=== PATIENT | female | born 1990 | race Caucasian/White ===

== ENCOUNTER 2021-04-27 15:18 | Emergency (ER) | payer MEDICAID ==
[~2021-04-27] VITALS: Ht 152.4 cm; Wt 50.3 kg
[2021-04-27 15:21] VITALS: BP 105/70
--- NOTE | 2021-04-27 15:28 | NUR ---
PT SENT TO LOBBY
[2021-04-27] MEDS ORDERED: LIDOCAINE MPF 1% 10 MG/ML VIAL INJ ONE (16:15)
--- NOTE | 2021-04-27 16:15 | NUR ---
30/F PRESENTS TO ED WITH C/O RIGHT EAR PAIN. PATIENT STATES THE BACK OF HER EARRING ON HER RIGHT EAR IS STUCK AND SHE IS UNABLE TO REMOVE IT FOR A WEEK NOW. STATES SHE WAS SEEN AT URGENT CARE TODAY BUT THEY WERE UNABLE TO REMOVE IT. DENIES FEVER, CHILLS OR PAIN.
[2021-04-27] MEDS ORDERED: BACTO TP (16:38)
--- NOTE | 2021-04-27 16:50 | NUR ---
Patient discharged with v/s stable. Written and verbal after care instructions given and explained. Patient alert, oriented and verbalized understanding of instructions. Ambulatory with steady gait. All questions addressed prior to discharge. ID band removed. Patient advised to follow up with PMD. Rx of Bactroban 2% Ointment given. Patient educated on indication of medication including possible reaction and side effects. Opportunity to ask questions provided and answered.
--- NOTE | 2021-04-27 16:52 | NUR ---
no nursing interventions performed
== END 2021-04-27 16:50 | disposition home or self-care (01) ==
LOC: MED 15:18
DX: T16.1XXA Foreign body in right ear, initial encounter (principal); Z79.899 Other long term (current) drug therapy; X58.XXXA Exposure to other specified factors, initial encounter; Y93.89 Activity, other specified; Y92.89 Other specified places as the place of occurrence of the external cause; Y99.8 Other external cause status
CPT/HCPCS: 99284; J2001

== ENCOUNTER 2021-12-20 14:03 | Emergency (ER) | payer MEDICAID ==
[~2021-12-20] VITALS: Ht 152.4 cm; Wt 43.5 kg
[~2021-12-20 14:03] MED LIST: BACTO TP
[2021-12-20 14:26] VITALS: BP 116/67
[2021-12-20] MEDS ORDERED: LIDOCAINE MPF 1% 10 MG/ML VIAL INJ ONE (14:50)
--- NOTE | 2021-12-20 15:49 | NUR ---
PT ELOPED FROM FACILITY WITHOUT D/C INSTRUCTIONS. PA AWARE.
== END 2021-12-20 15:38 | disposition left against medical advice (07) ==
LOC: MED 14:03
DX: S00.451A Superficial foreign body of right ear, initial encounter (principal); Z79.2 Long term (current) use of antibiotics; W45.8XXA Other foreign body or object entering through skin, initial encounter; Y93.89 Activity, other specified; Y92.89 Other specified places as the place of occurrence of the external cause; Y99.8 Other external cause status
CPT/HCPCS: 99281; J2001